=== PATIENT | female | born 1975 | race Caucasian/White ===

== ENCOUNTER → 2020-03-04 14:47 | Outpatient (BNVA) | payer OTHER, SELFPAY | PROVIDERS: Visit Provider Nurse Practitioner Women's Health | DX: Z01.419 Encounter for gynecological examination (general) (routine) without abnormal findings (principal); N95.1 Menopausal and female climacteric states; F41.8 Other specified anxiety disorders; N81.11 Cystocele, midline; N39.3 Stress incontinence (female) (male) | CPT/HCPCS: 88175 ==

== ENCOUNTER → 2020-03-10 10:15 | Outpatient (BNVA) | payer OTHER, SELFPAY | PROVIDERS: Visit Provider Obstetrics & Gynecology | DX: R32 Unspecified urinary incontinence (principal); N81.11 Cystocele, midline | CPT/HCPCS: 80053 ==

== ENCOUNTER 2020-03-29 08:34 | Day surgery (SDC) | payer OTHER, SELFPAY ==
[2020-03-28 08:32] LABS: OR HCG Qualitative Urine Negative (Negative)
[2020-03-28 08:39] LABS: Add Urine Microscopic? NO
--- NOTE | 2020-03-28 08:47 | P.ANESASSM_ITS ---
Pre-Anesthetic Assessment Pre-Anesthetic Assessment: Height/Weight: Height 1.65 m Weight 90.718 kg Preop Diagnosis: Mixed urinary incontinence Proposed Procedure: Operation Date: 03/29/20 10:15 Proposed Procedures p Midurethral single incision sling/[id number] R32 N81.11(Not Applicable) - MD marion Hardwick Cystoscopy(Not Applicable) - Trino Garay MD Familial anesthetic complications: None Social: Social History: No alcohol Comment: quit smoking 13 days ago Exam: Pre-Anes Outpt Exam: alert, oriented x 3, clear to auscultation bilaterally and regular rate & rhythm Airway: Cervical ROM: WNL MP: 2 Dentition: Other (missing) Pulmonary: Pulmonary: None reported CV/HEM: CV/HEM: None reported : : None reported Hepatic: Hepatic: None reported GI: GI: None reported Metabolic: Metabolic: None reported Musc/skel: Musc/skel: None reported Neuropsych: Neuropsych: Depression and Seizure (Toxemia during requiring (1991)) Anesthetic Plan: ASA status: 1 Anesthesia: General Risk of > 500 ml blood loss (7ml/kg in children): No PFSH Anesthesia PFSH: Medical History (Updated 03/12/20 @ 19:51 by Trino Garay MD) Anxiety with depression more depression than anxiety s/s No pertinent past medical history neghx: htn,dm,thyroid,dvt/pe Surgical History H/O section 1991-- Pre-Eclampsia 2008-- Repeat with tubal ligation H/O tubal ligation (~2008) at same time as the last c/s History of cholecystectomy Family History (Updated 03/12/20 @ 19:47 by Trino Garay MD) Father Diabetes Hyperlipidemia Hypertension Heart disease Mother Hyperlipidemia Hypertension Social History Additional social history: - Tobacco use: Current everyday smoker; .75pk daily Alcohol use: Social Drug use: Denies Female Reproductive History: Date of last menstrual period: 03/15/20 Data Anesthesia CBC & Chem 7: 03/28/20 08:35 Other Labs: Laboratory Results - last 48 hr 03/28/20 08:18 Urine HCG, Qual Negative Cardiac Studies: No Data to Display
[2020-03-28 08:51] LABS: Bilirubin Urine Neg (NEGATIVE); Blood Urine Neg (Negative); Glucose Urine UA Norm (Normal); Ketones Urine Negative (Negative); Leukocyte Esterase Urine Negative (Negative); Nitrate Urine Negative (Negative); Protein Urine Neg (Negative); Sulfosalicylic Acid Urine Negative (Negative); Urine Appearance Clear (CLEAR); Urine Color Yellow (Yellow); Urobilinogen Urine Norm (Negative)
[2020-03-28 09:11] LABS: Basophils # 0.1 10^3/uL (0.0-0.1); Basophils % 0.8 %; Eosinophils # 0.2 10^3/uL (0.0-0.8); Eosinophils % 2.1 %; Hematocrit 44.7 % (37.0-47.0); Hemoglobin 14.5 g/dL (11.5-15.3); Lymphocytes # 2.4 10^3/uL (0.8-4.8); Lymphocytes % 34.4 %; Mean Corpuscular HGB Conc 32.4 g/dL (30.0-36.0); Mean Corpuscular Hemoglobin 31.4 pg (28.0-34.0); Mean Corpuscular Volume 96.8 fL (81-99); Mean Platelet Volume 9.8 fL (7.4-10.4); Monocytes # 0.4 10^3/uL (0.2-0.9); Monocytes % 5.6 %; Neutrophils # 4.03 10^3/uL (1.8-7.7); Neutrophils % 56.8 %; Nucleated Red Blood Cells % 0 %; Platelet Count 350 10^3/cmm (130-400); Red Blood Count 4.62 10^6/uL (4.1-5.3); Red Cell Distribution Width 12.1 % (12.1-15.1); White Blood Count 7.1 10^3/uL (4.0-10.0)
--- NOTE | 2020-03-28 09:33 | SUR.PREOP ---
0830Spoke with dr Sinha regarding covid testing.stated he doesn't want covid testing unless it becomes a policy of [facility] Checked with Tatianna Ascencio,RN city [place] supervisor of ops[facility]gi and stated it is only a policy for pts that are going to be inpatients
[2020-03-29] VITALS (10 sets, daily range): BP systolic 113–134; BP diastolic 71–92; PULSE 51–69; RESP 16–19; TEMP 36.2–36.6; O2SAT 93–100
[2020-03-29 08:43] LABS: OR HCG Qualitative Urine Negative (Negative)
[2020-03-29] MEDS: sodium chloride 0.9% 1,000 ML 30 ML IV (09:04)
[2020-03-29] MEDS: phenazopyridine 100 mg Tablet 200 MG PO (09:05)
[2020-03-29] MEDS: ketorolac 30 mg/mL INJ IVP (09:05)
--- NOTE | 2020-03-29 09:24 | P.HPUD_ITS ---
Surgery/Procedure H&P Update DATE OF PROCEDURE: March 29, 2020 DATE H&P PERFORMED: 03/10/20 H&P UPDATE INFORMATION: I have reviewed H&P completed within last 30 days, I have examined patient prior to procedure, No changes to prior documentation and H&P is in [facility] EMR on date indicated PREOP DIAGNOSIS: Mixed urinary incontinence PLANNED PROCEDURE: Operation Date: 03/29/20 10:15 Proposed Procedures p Midurethral single incision sling/[id number] R32 N81.11(Not Applicable) - Trino Garay MD s Cystoscopy(Not Applicable) - Trino Garay MD
[2020-03-29] MEDS: vasopressin 20 unit/mL INJ 4 UNIT INJECTION (10:00)
--- NOTE | 2020-03-29 10:21 | PM.OP ---
Operative Report Date of procedure: March 29, 2020 Pre-op Diagnosis: Mixed urinary incontinence Post-op Diagnosis: Mixed urinary incontinence Procedure Done: Solyx single incision suburethral sling, Cystoscopy Specimens removed/disposition: None Surgeon: Trino Garay Bacteriologist Industrial: None Anesthesia: General Estimated blood loss (mL): 10 IV fluids (mL): 500 Complications: None Findings: First-degree uterine prolapse. First-degree cystocele. Brief History: Patient is a 45-year-old white female 3, para 3, who is status post tubal ligation. She presented to the office on 03/04/2020 and was evaluated by JAMISON Funez for various complaints. 1 of these was urinary incontinence. She was then referred to me for further evaluation discuss treatment. She reported that she leaks urine with coughing, sneezing, lifting, bending, etc. She also has urinary urgency with some incontinence with this. However, her worst symptoms are stress related. On exam she was noted to have a minimal cystocele with rest with a first degree cystocele with strain. She was noted to have hypermobility of the urethra with strain and cough. Since she had only minimal prolapse findings, decision was made to just proceed with a urethral sling for her stress component of her incontinence. Procedure: Patient was taken to the operating room where general anesthesia was obtained. She was prepped and draped in usual sterile fashion dorsal supine position with legs in Herrera style stirrups. Sequential compression boots had been placed prior to starting the case. An catheter was inserted and exam under anesthesia was performed. She was found to have a first-degree uterine prolapse and first-degree cystocele. The vaginal mucosa underneath the urethra was grasped with Allis clamps and injected with dilute Pitressin solution. A incision was made with the knife parallel to the urethra in the midline. Using Metzenbaum scissors, the vaginal mucosa was dissected from the periurethral tissue bilaterally. Using a solyx single incision sling kit, the sling was placed at the mid urethral level and passed through the periurethral tissue at a 45 degree angle to the urethra and advanced behind the pubic rami. This was repeated on the contralateral side in a similar fashion. The sling was brought up until it just rested against the periurethral tissue with a slight elevation of the tissue. An catheter was removed and cystoscopy was performed. Both ureters were noted to be effluxing urine well. Bladder was inspected and no bladder tumors or masses noted. No sling material was noted within the bladder or urethra. Bladder was drained and An catheter reinserted. The vaginal mucosa was reapproximated using 3-0 Vicryl suture in a running locking fashion. The vagina was then packed with 1 inch Nu Gauze. An catheter was removed. Cystoscope was inserted and the bladder was filled with approximately 150 mL of fluid and the cystoscope removed leaving the fluid in the bladder. Patient tolerated procedure well. Sponge and needle counts were correct. DRAINS: None POSTOPERATIVE STATUS: The patient was transferred to the recovery room in satisfactory condition. DISPOSITION: Discharge to home when criteria was met. Patient is to void prior to discharge and have post void residual checked. Goal is to have her void at least 100 mL with less than 100 left over in the bladder. If this is not achieved, then she will be going home either with a catheter or self-catheterization. FOLLOWUP APPOINTMENT: Followup appointment is scheduled in my office on on 04/13/2020. MEDICATIONS: Patient received prescriptions for: Tramadol 50 mg 1 to 2 tablets every 6 hours as needed for pain, #20, 0 refills Ibuprofen 800 mg, 1 tablet 3 times a day as needed for pain, #30, 0 refills
--- NOTE | 2020-03-29 10:34 | SUR.PHASEI ---
PT ON RA AWAKE ALERT DENIES PAIN ABD SOFT VAGINAL PACKING IN PLACE, VSS AND GOOD RESP EFFORT NOTED.L
--- NOTE | 2020-03-29 11:58 | PC.NURSE ---
at 1145 VAGINAL PACKING REMOVED WITH SCANT BLOOD NOTED. PT VOIDED 400ML THEN [address] TSE NOTIFIED AND HE STATED TO KEEP HER 1 MORE HOUR THEN TRY AGAIN.
== END 2020-03-29 13:20 | disposition home or self-care (01) ==
LOC: OR 13:40
PROVIDERS: PCP Nurse Practitioner Family; Visit Provider Obstetrics & Gynecology
PROC: (CPT 57288; principal; 2020-03-29 10:15)
PROC: 0TJB8ZZ Inspection of Bladder, Via Natural or Artificial Opening Endoscopic (ICD-10-PCS; CPT 52000; 2020-03-29 10:15)
DX: N39.46 Mixed incontinence (principal); N81.2 Incomplete uterovaginal prolapse; F17.210 Nicotine dependence, cigarettes, uncomplicated
CPT/HCPCS: 57288; 12345; 36415; 81003; 81025; 84703; 85025; 87086; 96374; C1771; J0690; J1100; J1885; J2405; J2704; J2710; J2765; J3010; J3490; J7030

== ENCOUNTER → 2021-04-26 08:37 | Outpatient (BNVA) | payer OTHER, SELFPAY | PROVIDERS: PCP Registered Nurse; Visit Provider Internal Medicine Rheumatology | DX: M19.90 Unspecified osteoarthritis, unspecified site (principal); R76.8 Other specified abnormal immunological findings in serum; Z79.899 Other long term (current) drug therapy; R53.83 Other fatigue; Z11.59 Encounter for screening for other viral diseases; Z11.1 Encounter for screening for respiratory tuberculosis; H04.123 Dry eye syndrome of bilateral lacrimal glands; Z71.89 Other specified counseling; F17.210 Nicotine dependence, cigarettes, uncomplicated | CPT/HCPCS: 99204 ==

== ENCOUNTER 2021-04-26 10:38 | Outpatient (CLI) | payer OTHER, SELFPAY ==
--- NOTE | 2021-04-26 10:53 | XR_ITS ---
WS: [id number] Left hand, 3 views, 04/26/2021 Clinical Data: Z79.899 - Other rn orthopedic (current) drug therapy Comparison: None. Findings: No fractures or dislocations are seen. The soft tissues are unremarkable. The joint spaces are normal No periarticular demineralization or calcifications are seen. XR/XR hand LT min 3V* [id number] Impression: Negative left hand.
--- NOTE | 2021-04-26 10:53 | XR_ITS ---
WS: [id number] Right hand, 3 views, 04/26/2021 Clinical Data: Z79.899 - Other prison (current) drug therapy Comparison: None. Findings: No fractures or dislocations are seen. The soft tissues are unremarkable. The joint space s are normal Periarticular demineralization or calcifications are seen. XR/XR hand RT min 3V* [id number] Impression: Negative right hand.
--- NOTE | 2021-04-26 10:53 | XR_ITS ---
WS: [id number] Left foot, 3 views, 04/26/2021 Clinical Data: Z79.899 - Other director long term care (current) drug therapy Comparison: None. Findings: No fractures or dislocations are seen. No bone destruction or erosion is noted. There is a small buni on of the head of the left first metatarsal. Small bunion at the head of the left first metatarsal. XR/XR foot LT min 3V* [id number] Impression: Negative left foot.
--- NOTE | 2021-04-26 10:53 | XR_ITS ---
WS: [id number] Right foot, 3 views, 04/26/2021 Clinical Data: Z79.899 - Other retirement (current) drug therapy Comparison: None. Findings: No fractures or dislocations are seen. No bone destruction or erosion is noted. There is a small buni on of the head of the right first metatarsal. No periarticular demineralization or calcifications are seen. XR/XR foot RT min 3V* [id number] Impression: Small bunion at head of right first metatarsal.
[2021-04-26 12:06] LABS: Bilirubin Urine Neg (Negative); Blood Urine 3+ (Negative); Glucose Urine UA Norm (Normal); Ketones Urine Negative (Negative); Nitrate Urine Negative (Negative); Protein Urine Neg (Negative); Specific Gravity, Urine 1.005 (1.005-1.030); Urine Appearance Clear (CLEAR); Urine Color Straw (Yellow); Urobilinogen Urine Norm (Negative); pH Urine 7 (5-7)
[2021-04-26 12:07] LABS: Leukocyte Esterase Urine Negative (Negative)
[2021-04-26 12:12] LABS: Add Urine Culture? No; Bacteria Urine TRACE /hpf
[2021-04-26 12:29] LABS: C Reactive Protein 5.7 mg/L (0.0-4.9); Complement C3 151 mg/dL (90-180); Free T4 Free Thyroxine 1.17 ng/dL (0.82-1.77); Thyroid Stimulating Hormone 1.42 uIU/mL (0.27-4.20)
[2021-04-26 12:30] LABS: Urine Creatinine 47 mg/dL (28-217); Urine Protein Random 4 mg/dL
[2021-04-26 12:32] LABS: Hepatitis B Core AB, Total Non-Reactive (Nonreactive); Hepatitis B Surface Antigen Non-Reactive (Nonreactive); Hepatitis C Virus Antibody Non-Reactive (Nonreactive)
[2021-04-26 12:45] LABS: Erythrocyte Sedimentation Rate 6 mm/hr (0-15)
[2021-04-26 13:15] LABS: 25 Hydroxy Vitamin D 34 ng/mL (30-100)
[2021-04-27 12:49] LABS: COMPLEMENT COMPONENT C3C 140 mg/dL (83-193); COMPLEMENT COMPONENT C4C 35 mg/dL (15-57)
[2021-04-27 15:32] LABS: Cyclic Citrullinated Peptide 29 UNITS
[2021-04-28 13:37] LABS: COMPLEMENT, TOTAL (CH50) >60 U/mL (31-60)
[2021-04-28 15:37] LABS: Quantiferon Mitogen 7.98 IU/mL; Quantiferon Nil 0.05 IU/mL; Quantiferon Plus TB1 0.09 IU/mL; Quantiferon Plus TB2 0.01 IU/mL; Quantiferon TB Gold NEGATIVE (NEGATIVE)
[2021-05-02 10:36] LABS: THYROID PEROXIDASE ANTIBODIES 1 IU/mL (<9)
[2021-05-02 17:03] LABS: CENTROMERE B ANTIBODY <1.0 NEG AI (<1.0 NEG); JO-1 ANTIBODY <1.0 NEG AI (<1.0 NEG); RNP ANTIBODY <1.0 NEG AI (<1.0 NEG); SCL-70 ANTIBODY <1.0 NEG AI (<1.0 NEG); SJOGREN'S ANTIBODY (SS-A) <1.0 NEG AI (<1.0 NEG); SM ANTIBODY <1.0 NEG AI (<1.0 NEG); SS-B <1.0 NEG AI (<1.0 NEG)
[2021-05-03 12:32] LABS: ANA SCREEN, IFA POSITIVE (NEGATIVE)
[2021-05-05 10:28] LABS: DNA AB (DS) CRITHIDIA,IFA NEGATIVE (NEGATIVE)
== END 2021-04-26 10:39 | disposition home or self-care (01) ==
PROVIDERS: PCP Registered Nurse; Visit Provider Internal Medicine Rheumatology
DX: M19.90 Unspecified osteoarthritis, unspecified site (principal); R53.83 Other fatigue; R76.8 Other specified abnormal immunological findings in serum; Z79.899 Other long term (current) drug therapy; Z11.59 Encounter for screening for other viral diseases; Z11.1 Encounter for screening for respiratory tuberculosis
CPT/HCPCS: 36415; 73130; 73630; 81001; 82306; 82570; 84156; 84439; 84443; 85651; 86140; 86160; 86162; 86235; 86255; 86376; 86480; 86704; 86803; 87340

== ENCOUNTER → 2021-06-12 10:07 | Outpatient (BNVA) | payer OTHER, SELFPAY | PROVIDERS: PCP Registered Nurse; Visit Provider Internal Medicine Rheumatology | DX: M19.90 Unspecified osteoarthritis, unspecified site (principal); R76.8 Other specified abnormal immunological findings in serum; Z79.899 Other long term (current) drug therapy; H04.123 Dry eye syndrome of bilateral lacrimal glands; R23.1 Pallor; R53.83 Other fatigue; Z71.89 Other specified counseling; F17.210 Nicotine dependence, cigarettes, uncomplicated | CPT/HCPCS: 99214 ==

== ENCOUNTER → 2021-09-06 10:19 | Outpatient (BNVA) | payer BC, SELFPAY | PROVIDERS: PCP Registered Nurse; Visit Provider Nurse Practitioner Women's Health | DX: Z01.411 Encounter for gynecological examination (general) (routine) with abnormal findings (principal); Z79.899 Other long term (current) drug therapy; N95.1 Menopausal and female climacteric states | CPT/HCPCS: 87624 ==

== ENCOUNTER → 2021-10-03 14:04 | Outpatient (BNVA) | payer BC, SELFPAY | PROVIDERS: PCP Registered Nurse; Visit Provider Nurse Practitioner Women's Health | DX: N93.9 Abnormal uterine and vaginal bleeding, unspecified (principal) | CPT/HCPCS: 76830 ==

== ENCOUNTER 2021-10-10 08:55 | Outpatient (CLI) | payer BC, SELFPAY ==
--- NOTE | 2021-10-10 09:04 | MM_ITS ---
WS: [id number] BILATERAL DIGITAL SCREENING MAMMOGRAPHY WITH CAD CLINICAL INFORMATION: SCREENING HISTORY: Screening mammogram. No current complaints. COMPARISON: None. TECHNIQUE: Bilateral CC and MLO views. FINDINGS: Scattered fibroglandular densities bilaterally. Vascular calcification. Dense nodular focal asymmetri c density upper outer LEFT breast posterior depth measuring 2.8 cm with dense breast tissue in this a jonathon. Recommend spot compression views of this area and ultrasound. RIGHT breast is unremarkable. MM/[place] [id number] IMPRESSION: BI-RADS: 0-Incomplete: Need additional imaging evaluation FOLLOW UP: Need Additional Imaging Recommend LEFT breast diagnostic mammography and ultrasound.
== END 2021-10-10 08:56 | disposition home or self-care (01) ==
PROVIDERS: PCP Registered Nurse; Visit Provider Registered Nurse
DX: Z12.31 Encounter for screening mammogram for malignant neoplasm of breast (principal)
CPT/HCPCS: 77067

== ENCOUNTER → 2024-01-21 10:22 | Outpatient (BNVA) | payer OTHER, SELFPAY | PROVIDERS: PCP Registered Nurse; Visit Provider Internal Medicine Rheumatology | DX: M05.79 Rheumatoid arthritis with rheumatoid factor of multiple sites without organ or systems involvement (principal); Z79.899 Other long term (current) drug therapy; M79.673 Pain in unspecified foot | CPT/HCPCS: 73630 ==